=== PATIENT | female | born 1995 | race American Indian/Alaskan Native ===

== ENCOUNTER 2016-12-15 09:25 | Emergency (ER) | payer SELFPAY ==
[2016-12-15 09:44] VITALS: BP 116/66
[2016-12-15 10:20] LABS: Basophils % (Auto) 0.7 % (0.0-1.8); Eosinophils % (Auto) 5.8 % (0.0-4.3); Hematocrit 41.1 % (30.3-42.9); Hemoglobin 13.7 gm/dl (10.1-14.3); Mean Corpuscular HGB Conc 33 % (30-34); Mean Corpuscular Hemoglobin 29 pg (28-32); Mean Corpuscular Volume 86 fl (79-97); Platelet Count 234 K/mm3 (140-440); Red Blood Count 4.77 M/mm3 (3.65-5.03); Red Cell Distribution Width 13.7 % (13.2-15.2); White Blood Count 10.3 K/mm3 (4.5-11.0)
[2016-12-15 10:37] LABS: Bilirubin,Urine NEG (Negative); Blood,Urine NEG (Negative); Ketones,Urine NEG (Negative); Leukocyte Esterase,Urine SM (Negative); Mucus,Urine FEW /HPF; Nitrite,Urine NEG (Negative); Protein,Urine <15 mg/dL mg/dL (Negative); Urobilinogen,Urine < 2.0 mg/dL (<2.0)
--- NOTE | 2016-12-15 14:41 | Emergency Department Report ---
HPI - General Chief Complaint: Vaginal Bleeding Time Seen by Provider: 12/15/16 13:33 - HPI HPI: This is a 21-year-old -[place] female presents the emergency department with a complaint of a one-month history of heavy vaginal bleeding and pelvic discomfort. About one month ago the patient was seen at [facility] and diagnosed with an ovarian cyst. She was discharged home at that time with some narcotic pain medication and ibuprofen. She took that medication but ran out and has not taken anything recently. She says that there was some improvement shortly after discharge from [facility] but the symptoms increased in intensity about 2 weeks ago and is now associated with some nausea without vomiting. She denies any vaginal discharge, dysuria, fever. She denies any past medical history. She has a implanted control. She does not have an [employer] or primary care doctor. No recent travel or sick contacts at home. ED Past Medical Hx - Past Medical History Previous Medical History?: No - Surgical History Past Surgical History?: Yes Additional Surgical History: control hormone implant August 2014 - Social History Smoking Status: Never Smoker Substance Use Type: Marijuana - Medications Home Medications: Home Medications Medication Instructions Recorded Confirmed Last Taken Type traMADol [Ultram] 50 mg PO Q6HR PRN #12 tablet 12/15/16 Unknown Rx ED Review of Systems ROS: Stated complaint: POSS CYST ON OVARY/PAIN/VOMITING Other details as noted in HPI Comment: All other systems reviewed and negative Constitutional: denies: chills, fever Eyes: denies: eye pain, eye discharge, vision change ENT: denies: ear pain, throat pain Respiratory: denies: cough, shortness of breath, wheezing Cardiovascular: denies: chest pain, palpitations Gastrointestinal: abdominal pain (pelvic pain), nausea. denies: vomiting Genitourinary: other (vaginal bleeding). denies: dysuria Musculoskeletal: denies: back pain, joint swelling, arthralgia Skin: denies: rash, lesions Neurological: denies: headache, weakness, paresthesias Physical Exam - Physical Exam Vital Signs: Vital Signs 12/15/16 09:40 Temperature 98.6 F Pulse Rate 61 Respiratory 18 Rate Blood Pressure 116/66 O2 Sat by Pulse 100 Oximetry Physical Exam: GENERAL: The patient is well-developed well-nourished. HEENT: Normocephalic. Atraumatic. Extraocular motions are intact. Patient has moist mucous membranes. Pupils equal reactive to light bilaterally. NECK: Supple. Trach is midline. CHEST/LUNGS: Clear to auscultation. There is no respiratory distress noted. HEART/CARDIOVASCULAR: Regular. There is no tachycardia. There is no gallop rub or murmur. ABDOMEN: Abdomen is soft, nontender. Patient has normal bowel sounds. There is no abdominal distention. Unable to reproduce patient's pelvic pain to palpation. No peritoneal signs. SKIN: Skin is warm and dry. NEURO: The patient is awake, alert, and oriented. The patient is cooperative. The patient has no focal neurologic deficits. The patient has normal speech. MUSCULOSKELETAL: There is no tenderness or deformity. There is no limitation range of motion. There is no evidence of acute injury. : Deferred ED Course Vital Signs 12/15/16 09:40 Temperature 98.6 F Pulse Rate 61 Respiratory 18 Rate Blood Pressure 116/66 O2 Sat by Pulse 100 Oximetry ED Medical Decision Making - Lab Data Result diagrams: 12/15/16 09:55 - Radiology Data Radiology results: report reviewed Transvaginal/pelvic ultrasound shows a left ovarian cyst. - Medical Decision Making 21-year-old female presents with a 2 to three-week history of pelvic discomfort and heavy vaginal bleeding. She had the same problem about a month ago when she was seen at [facility]. Today her hemoglobin is stable at 13. Ultrasound shows a left ovarian cyst. Patient is not . There is no significant urinary tract infection. Vital signs stable throughout her ED course. The patient will be discharged home to follow-up with an [employer] physician. She'll return to the ER with any worsening of her symptoms or any acute distress. - Differential Diagnosis dysfunctional uterine bleeding, , fibroids, menorrhagia Critical Care Time: No Critical care attestation.: If time is entered above; I have spent that time in minutes in the direct care of this critically ill patient, excluding procedure time. ED Disposition Clinical Impression: Dysfunctional uterine bleeding Menorrhagia Qualifiers: Menorrahagia type: with irregular cycle Qualified Code(s): N92.1 - Excessive and frequent menstruation with irregular cycle Disposition: DISCHARGED TO HOME OR SELFCARE Is pt being admited?: No Condition: Stable Instructions: Menorrhagia (ED), Dysfunctional Uterine Bleeding (ED) Additional Instructions: Please follow-up with an [employer] in the next few days. Return to the emergency department with any worsening of your symptoms or any acute distress. You've been prescribed a medication that is sedating. Therefore this medication cannot be mixed with alcohol, or taken prior to driving, working, or being responsible for children. Prescriptions: traMADol [Ultram] 50 mg PO Q6HR PRN #12 tablet PRN Reason: Pain Referrals: PRIMARY CAREMD [Primary Care Provider] - 3-5 Days ZAHRAA PIKE MD [Staff Physician] - 3-5 Days VETO RAYGOZA MD [Staff Physician] - 3-5 Days [facility] [Outside] - 3-5 Days Time of Disposition: 16:02
--- NOTE | 2016-12-15 15:56 | Ultrasound Report ---
Pelvic and transvaginal sonography: History: Pelvic pain and bleeding. Findings: Uterus measures 7.1 x 3.6 x 5 cm. Endometrial thickness 0.9 mm. Right ovary 2.9 x 2.2 x 2.3 cm. No mass. Left ovary 4.3 x 2.4 x 2.8 cm. Cyst in the left ovary measures 3.8 x 2.4 x 3 cm. Impression: Cyst left ovary.
== END 2016-12-15 16:32 | disposition home or self-care (01) ==
LOC: ED 09:25
DX: N93.8 Other specified abnormal uterine and vaginal bleeding (principal); N92.1 Excessive and frequent menstruation with irregular cycle
CPT/HCPCS: 36415; 76830; 81001; 81025; 85025; 86850; 86900; 86901; 93975

== ENCOUNTER 2017-04-09 16:03 | Emergency (ER) | payer SELFPAY ==
--- NOTE | 2017-04-09 17:25 | Emergency Department Report ---
Chief Complaint: Dizziness Stated Complaint: SOB/LIGHT HEADED Time Seen by Provider: 04/09/17 17:22 - HPI History of Present Illness: PT states she fainted yesterday while in a store. - ROS Review of Systems: + cough - fever + chest pain + sore throat - Exam Vital Signs: Vital Signs 04/09/17 16:11 Temperature 98.6 F Pulse Rate 88 Respiratory 18 Rate Blood Pressure 135/71 O2 Sat by Pulse 100 Oximetry Physical Exam: + chest wall tenderness lungs cta at this time, however pt coughing MSE screening note: Focused history and physical exam performed. Due to findings the following was ordered: ekg, labs, xr ED Disposition for MSE Condition: Stable Referrals: PRIMARY CARE, [Primary Care Provider] - 3-5 Days
[2017-04-09 18:19] LABS: Alanine Aminotransferase 11 units/L (7-56); Albumin 3.9 g/dL (3.9-5); Albumin/Globulin Ratio 1.1 %; Alkaline Phosphatase 55 units/L (35-129); Anion Gap 18 mmol/L; BUN/Creatinine Ratio 12.22; Blood Urea Nitrogen 11 mg/dL (7-17); Calcium 8.9 mg/dL (8.4-10.2); Carbon Dioxide 23 mmol/L (22-30); Chloride 100.6 mmol/L (98-107); Creatine Kinase 155 units/L (30-135); Glucose 74 mg/dL (65-100); Potassium 4.4 mmol/L (3.6-5.0); Sodium 137 mmol/L (137-145); Total Protein 7.3 g/dL (6.3-8.2)
[2017-04-09 18:21] LABS: Basophils % (Auto) 0.9 % (0.0-1.8); Eosinophils % (Auto) 4.8 % (0.0-4.3); Hematocrit 42.2 % (30.3-42.9); Hemoglobin 13.4 gm/dl (10.1-14.3); Mean Corpuscular HGB Conc 32 % (30-34); Mean Corpuscular Hemoglobin 28 pg (28-32); Mean Corpuscular Volume 87 fl (79-97); Platelet Count 270 K/mm3 (140-440); Red Blood Count 4.84 M/mm3 (3.65-5.03); Red Cell Distribution Width 14.2 % (13.2-15.2)
[2017-04-09] MEDS ORDERED: NACL 0.9% 1000 ML 1,000 ML IV ONE (23:21)
--- NOTE | 2017-04-09 23:23 | Emergency Department Report ---
HPI - General Chief Complaint: Dizziness Time Seen by Provider: 04/09/17 17:22 - HPI HPI: Patient brought to the ED with dizziness. Patient states yesterday she had a syncopal episode from standing outside. He has not been feeling well since. Complaining of feeling weak, dizzy, feeling unwell. Patient denies any chest pain, shortness of breath, nausea, vomiting. Patient denies having similar symptoms in the past. She denies any alleviating or exacerbating factors. ED Past Medical Hx - Surgical History Past Surgical History?: Yes Additional Surgical History: control hormone implant August 2014 - Social History Smoking Status: Current Every Day Smoker Substance Use Type: None - Medications Home Medications: Home Medications Medication Instructions Recorded Confirmed Last Taken Type traMADol [Ultram] 50 mg PO Q6HR PRN #12 tablet 12/15/16 Unknown Rx Meclizine [Antivert] 25 mg PO TID PRN #30 tablet 04/10/17 Unknown Rx ED Review of Systems ROS: Stated complaint: SOB/LIGHT HEADED Other details as noted in HPI Comment: All other systems reviewed and negative Gastrointestinal: as per HPI Neurological: weakness Physical Exam - Physical Exam Vital Signs: Vital Signs 04/09/17 16:11 Temperature 98.6 F Pulse Rate 88 Respiratory 18 Rate Blood Pressure 135/71 O2 Sat by Pulse 100 Oximetry Physical Exam: Gen. alert and oriented 3 in no distress Head atraumatic normocephalic Eyes PERR LA EOMI Chest regular rate and rhythm normal S1-S2 lungs clear bilaterally Abdomen soft nondistended Back no point tenderness paravertebral tenderness Neuro no focal deficit. Psych normal mood. ED Course Vital Signs 04/09/17 16:11 Temperature 98.6 F Pulse Rate 88 Respiratory 18 Rate Blood Pressure 135/71 O2 Sat by Pulse 100 Oximetry ED Medical Decision Making - Lab Data Result diagrams: 04/09/17 17:44 04/09/17 17:44 Critical care attestation.: If time is entered above; I have spent that time in minutes in the direct care of this critically ill patient, excluding procedure time. ED Disposition Clinical Impression: Dizziness Disposition: DC-01 TO HOME OR SELFCARE Is pt being admited?: No Does the pt Need Aspirin: No Condition: Stable Instructions: Dizziness (ED) Prescriptions: Meclizine [Antivert] 25 mg PO TID PRN #30 tablet PRN Reason: Vertigo Referrals: PRIMARY CARE,MD [Primary Care Provider] - 3-5 Days
[2017-04-10] MEDS ORDERED: NACL ONE (01:00)
--- NOTE | 2017-04-10 01:21 | Cat Scan Report ---
FINAL REPORT EXAM: CT HEAD/BRAIN WO CON HISTORY: dizziness, syncope COMPARISON: None available. TECHNIQUE: Axial images obtained skull base through vertex. FINDINGS: No acute intracranial hemorrhage, midline shift or pathologic extra axial fluid collection. Ventricles and cisterns are normal in size and configuration for the patient's age. Last-white differentiation preserved. Calvarium grossly intact. Orbits are grossly unremarkable. Prominence of the nasopharyngeal adenoids likely reactive given the patient's age. Mild mucosal thickening ethmoid air cells. Mastoid air cells are clear. IMPRESSION: No grossly acute intracranial abnormality.
--- NOTE | 2017-04-10 01:42 | Cat Scan Report ---
FINAL REPORT EXAM: CT ANGIO CHEST HISTORY: sob, dizziness COMPARISON: None available. TECHNIQUE: Contiguous axial images were obtained. Additional sagittal and coronal reformatted images were obtained. Max intensity projection images. Administration of IV contrast given per institution protocol. Images submitted for interpretation. 100 cc Omnipaque 350. FINDINGS: Heart normal in size. Thoracic aorta normal in caliber. No dissection. No pulmonary embolus. No pathologically enlarged intrathoracic or axillary lymph nodes. Mild bronchial wall thickening concerning for bronchitis. Mild subsegmental atelectasis at the medial margin right lower lobe. No dense airspace consolidation or pleural effusion. Small bleb at the superior posterior aspect of the right lower lobe. Visualized upper abdomen is grossly unremarkable. Bony thorax is grossly intact. IMPRESSION: No pulmonary embolus. Mild bronchial wall thickening concerning for bronchitis. No dense consolidation or effusion.
[2017-04-10 02:42] VITALS: BP 114/66
--- NOTE | 2017-04-10 08:16 | XRay Report ---
CHEST 2 VIEWS INDICATION: Chest pain, productive cough for 2 days. Smoker. COMPARISON: None similar. FINDINGS: PA and lateral chest radiographs demonstrate normal cardiomediastinal silhouette. Slightly prominent lung markings centrally. No pleural effusions or CHF. Slight lower thoracic dextroscoliosis. CONCLUSION: No significant acute chest process, as described. Thank you for the opportunity to participate in this patient's care.
== END 2017-04-10 03:26 | disposition home or self-care (01) ==
LOC: ED 16:03
DX: R42 Dizziness and giddiness (principal); F17.200 Nicotine dependence, unspecified, uncomplicated
CPT/HCPCS: 36415; 70450; 71020; 71275; 80053; 82550; 84703; 85025; 93005; 93010; 96360; 99284; J7030; Q9967

== ENCOUNTER 2019-07-07 16:37 | Emergency (ER) | payer SELFPAY | END 2019-07-07 17:16 | disposition left against medical advice (07) | LOC: ED 16:37 | DX: R55 Syncope and collapse (principal); Z53.21 Procedure and treatment not carried out due to patient leaving prior to being seen by health care provider ==

== ENCOUNTER 2020-03-06 11:10 | Emergency (ER) | payer SELFPAY ==
[2020-03-06 12:01] LABS: Basophils # (Auto) 0.1 K/mm3 (0.0-0.1); Basophils % (Auto) 0.5 % (0.0-1.8); Eosinophils # (Auto) 0.3 K/mm3 (0.0-0.4); Eosinophils % (Auto) 2.5 % (0.0-4.3); Hematocrit 42.9 % (30.3-42.9); Hemoglobin 14.1 gm/dl (10.1-14.3); Lymphocytes # (Auto) 1.8 K/mm3 (1.2-5.4); Lymphocytes % (Auto) 15.8 % (13.4-35.0); Mean Corpuscular HGB Conc 33 % (30-34); Mean Corpuscular Volume 87 fl (79-97); Monocytes # (Auto) 0.6 K/mm3 (0.0-0.8); Monocytes % (Auto) 5.1 % (0.0-7.3); Platelet Count 277 K/mm3 (140-440); Red Blood Count 4.94 M/mm3 (3.65-5.03); Red Cell Distribution Width 15.8 % (13.2-15.2)
[2020-03-06 12:17] LABS: Alanine Aminotransferase 22 units/L (7-56); Albumin 4.5 g/dL (3.9-5); BUN/Creatinine Ratio 14; Blood Urea Nitrogen 13 mg/dL (7-17); Hemolysis Index 4
--- NOTE | 2020-03-06 14:56 | Emergency Department Report ---
ED Abdominal Pain HPI - General Chief Complaint: Abdominal Pain Stated Complaint: N/V/ABD PAIN Time Seen by Provider: 03/06/20 12:25 Source: patient Mode of arrival: Wheelchair Limitations: No Limitations - History of Present Illness MD Complaint: abdominal pain, flank pain -: Gradual, Sudden, days(s) Location: diffuse Radiation: none Migration to: no migration Severity: moderate Quality: cramping, aching Consistency: constant Improves With: nothing Worsens With: eating Associated Symptoms: nausea, vomiting, diarrhea, chills. denies: melena, hematuria, anorexia, syncope - Related Data Previous Rx's Medication Instructions Recorded Last Taken Type traMADoL [Ultram] 50 mg PO Q6HR PRN #12 tablet 12/15/16 Unknown Rx Meclizine [Antivert] 25 mg PO TID PRN #30 tablet 04/10/17 Unknown Rx Ciprofloxacin HCl [Ciprofloxacin 500 mg PO Q12HR #28 tab 03/06/20 Unknown Rx TAB] Hyoscyamine Subl [Levsin Sl 0.125 0.125 mg SL Q6HR PRN #20 tab 03/06/20 Unknown Rx TAB] Ondansetron [Zofran ODT TAB] 8 mg PO Q12HR #14 tab.rapdis 03/06/20 Unknown Rx metroNIDAZOLE [Flagyl] 500 mg PO Q12HR #28 tab 03/06/20 Unknown Rx Allergies Allergy/AdvReac Type Severity Reaction Status Date / Time No Known Allergies Allergy Verified 04/09/17 16:11 ED Review of Systems ROS: Stated complaint: N/V/ABD PAIN Other details as noted in HPI Comment: All other systems reviewed and negative ED Past Medical Hx - Past Medical History Previous Medical History?: No - Surgical History Past Surgical History?: No Additional Surgical History: control hormone implant August 2014 - Social History Smoking Status: Never Smoker Substance Use Type: None - Medications Home Medications: Home Medications Medication Instructions Recorded Confirmed Last Taken Type traMADoL [Ultram] 50 mg PO Q6HR PRN #12 tablet 12/15/16 Unknown Rx Meclizine [Antivert] 25 mg PO TID PRN #30 tablet 04/10/17 Unknown Rx Ciprofloxacin HCl [Ciprofloxacin 500 mg PO Q12HR #28 tab 03/06/20 Unknown Rx TAB] Hyoscyamine Subl [Levsin Sl 0.125 0.125 mg SL Q6HR PRN #20 tab 03/06/20 Unknown Rx TAB] Ondansetron [Zofran ODT TAB] 8 mg PO Q12HR #14 tab.rapdis 03/06/20 Unknown Rx metroNIDAZOLE [Flagyl] 500 mg PO Q12HR #28 tab 03/06/20 Unknown Rx ED Physical Exam - General Limitations: No Limitations General appearance: alert, in no apparent distress - Head Head exam: Present: atraumatic, normocephalic - Eye Eye exam: Present: normal appearance, PERRL, EOMI Pupils: Present: normal accommodation - ENT ENT exam: Present: normal exam, mucous membranes moist, TM's normal bilaterally - Neck Neck exam: Present: normal inspection, full ROM - Respiratory Respiratory exam: Present: normal lung sounds bilaterally. Absent: respiratory distress - Cardiovascular Cardiovascular Exam: Present: regular rate, normal rhythm. Absent: systolic murmur, diastolic murmur, rubs, gallop - GI/Abdominal GI/Abdominal exam: Present: soft, tenderness, normal bowel sounds. Absent: organomegaly, mass, bruit - Extremities Exam Extremities exam: Present: normal inspection - Back Exam Back exam: Present: normal inspection - Neurological Exam Neurological exam: Present: alert, oriented X3 - Psychiatric Psychiatric exam: Present: normal affect, normal mood - Skin Skin exam: Present: warm, dry, intact, normal color. Absent: rash ED Course Vital Signs 03/06/20 11:17 Temperature 97.9 F Pulse Rate 65 Respiratory 20 Rate Blood Pressure 139/76 [Right] O2 Sat by Pulse 97 Oximetry ED Medical Decision Making - Lab Data Result diagrams: 03/06/20 11:24 03/06/20 11:24 - Radiology Data Radiology results: report reviewed Patient Name: JOY SIMONS Gender: Female Date of : 1995 Referring Provider: NELL LIU Organization: [facility] Accession Number: [id number] Requested Date: March 06, 2020 17:26 Report Status: Final Requested Procedure: 1 Procedure Description: CT abdomen pelvis w con Moda lity: CT Findings Reporting MD: Екатерина Dao Dictation Time: March 06, 2020 17:34 Centrifugal Screen Tender: Not available Geotechnicial Properties Technician Date: CT abdomen pelvis w con INDICATION / CLINICAL INFORMATION: Lower abdominal pain, nausea and vomiting. TECHNIQUE: Axial CT imaging of abdomen and pelvis was obtained with IV contrast. Coronal and sagittal reformatted imaging obtained and reviewed. All CT scans at this location are performed using CT dose reduction for ALARA by means of automated exposure control. COMPARISON: Prior CT, 05/31/2015 FINDINGS: CT abdomen with contrast demonstrates grossly normal appearance of the liver, spleen, pancreas, kidneys, and adrenal glands. Gallbladder is present and without obvious abnormality. CT pelvis demonstrates a small amount of free fluid scattered throughout the pelvis. No adnexal mass noted. A normal appendix is present. There is some mild inflammatory change noted throughout the descending and transverse colon suspicious for mild colitis. The remainder of the GI tract is unremarkable. Visualized lung bases are clear. No acute pulmonary or pleural disease noted in either lung base. No significant osseous abnormality identified. IMPRESSION: 1. Mild colitis involving the transverse and descending colon. 2. Small amount of free fluid in the pelvis which may be physiologic. Signer Name: Екатерина Dao MD Signed: 03/06/2020 5:34 PM Workstation Name: [id number] - Medical Decision Making This patient presents with abdominal pain and nausea which appears to be secondary to a colitis. A CT scan was performed to evaluate for potential causes of the abdominal pain, however, neither the clinical exam nor the CT has identified an emergent etiology for the abdominal pain CT scan did show colitis. Specifically, given the benign exam, the laboratory studies, and unremarkable CT, I have a very low suspicion for appendicitis, ischemic bowel, bowel perforation, or any other life threatening disease. I have discussed with the patient the level of uncertainty with undifferentiated abdominal pain and clearly explained the need to follow-up as noted on the discharge instructions, or return to the Emergency Department immediately if the pain worsens, develops fever, persistent and uncontrollable vomiting, or for any new symptoms or concerns. Critical care attestation.: If time is entered above; I have spent that time in minutes in the direct care of this critically ill patient, excluding procedure time. ED Disposition Clinical Impression: Colitis Disposition: DC-01 TO HOME OR SELFCARE Is pt being admited?: No Does the pt Need Aspirin: No Condition: Stable Instructions: Abdominal Pain (ED), Infectious Colitis (ED) Prescriptions: Ciprofloxacin HCl [Ciprofloxacin TAB] 500 mg PO Q12HR #28 tab metroNIDAZOLE [Flagyl] 500 mg PO Q12HR #28 tab Hyoscyamine Subl [Levsin Sl 0.125 TAB] 0.125 mg SL Q6HR PRN #20 tab PRN Reason: abdominal cramps and spasms Ondansetron [Zofran ODT TAB] 8 mg PO Q12HR #14 tab.petar Referrals: PRIMARY CARE, [Primary Care Provider] - 3-5 Days [facility] [Provider Group] - 3-5 Days
[2020-03-06] MEDS ORDERED: ONDANSETRON 4 MG ODT TAB PO STA (14:59)
[2020-03-06] MEDS ORDERED: diphenhydrAMINE 50 MG/ML VIAL IV STA (17:26)
[2020-03-06] MEDS ORDERED: METOCLOPRAMIDE 10 MG/2 ML INJ IV STA (17:26)
[2020-03-06] MEDS ORDERED: SODIUM CHLORIDE 0.9% 1000 ML 1,000 ML IV ONE (17:26)
--- NOTE | 2020-03-06 18:38 | Cat Scan Report ---
CT abdomen pelvis w con INDICATION / CLINICAL INFORMATION: Lower abdominal pain, nausea and vomiting. TECHNIQUE: Axial CT imaging of abdomen and pelvis was obtained with IV contrast. Coronal and sagittal reformatte d imaging obtained and reviewed. All CT scans at this location are performed using CT dose reduction for ALARA by means of automated exposure control. COMPARISON: Prior CT, 05/31/2015 FINDINGS: CT abdomen with contrast demonstrates grossly normal appearance of the liver, spleen, pancreas, kidne ys, and adrenal glands. Gallbladder is present and without obvious abnormality. CT pelvis demonstrates a small amount of free fluid scattered throughout the pelvis. No adnexal mass noted. A normal appendix is present. There is some mild inflammatory change noted throughout the desc ending and transverse colon suspicious for mild colitis. The remainder of the GI tract is unremarkabl e. Visualized lung bases are clear. No acute pulmonary or pleural disease noted in either lung base. No significant osseous abnormality identified. IMPRESSION: 1. Mild colitis involving the transverse and descending colon. 2. Small amount of free fluid in the pelvis which may be physiologic. Signer Name: Екатерина Dao MD Signed: 03/06/2020 6:34 PM Workstation Name: [id number]
[2020-03-06 20:04] VITALS: BP 126/87
== END 2020-03-06 19:40 | disposition home or self-care (01) ==
LOC: ED 11:10
DX: K52.9 Noninfective gastroenteritis and colitis, unspecified (principal)
CPT/HCPCS: 36415; 74177; 80053; 83690; 84703; 85025; 96361; 96374; 96375; 99284; J1200; J2765; J7030; Q9967; Q0162

== ENCOUNTER 2020-05-05 13:52 | Emergency (ER) | payer SELFPAY ==
[2020-05-05 13:58] VITALS: BP 131/60
[2020-05-05 14:42] LABS: Basophils # (Auto) 0.1 K/mm3 (0.0-0.1); Basophils % (Auto) 0.7 % (0.0-1.8); Eosinophils # (Auto) 0.1 K/mm3 (0.0-0.4); Eosinophils % (Auto) 1.2 % (0.0-4.3); Hematocrit 41.4 % (30.3-42.9); Hemoglobin 13.8 gm/dl (10.1-14.3); Lymphocytes # (Auto) 1.9 K/mm3 (1.2-5.4); Lymphocytes % (Auto) 23.3 % (13.4-35.0); Mean Corpuscular HGB Conc 33 % (30-34); Mean Corpuscular Volume 88 fl (79-97); Monocytes # (Auto) 0.6 K/mm3 (0.0-0.8); Monocytes % (Auto) 7.3 % (0.0-7.3); Platelet Count 251 K/mm3 (140-440); Red Cell Distribution Width 16.6 % (13.2-15.2)
[2020-05-05 15:03] LABS: Alanine Aminotransferase 15 units/L (7-56); Albumin 4.6 g/dL (3.9-5); BUN/Creatinine Ratio 14; Blood Urea Nitrogen 11 mg/dL (7-17); Calcium 9.5 mg/dL (8.4-10.2); Hemolysis Index 5
[2020-05-05 16:56] LABS: HCG Qualitative,Urine Positive (Negative)
[2020-05-05 16:57] LABS: Bilirubin,Urine NEG (Negative); Blood,Urine NEG (Negative); Color,Urine Straw (Yellow); Mucus,Urine FEW /HPF; Protein,Urine <15 mg/dL mg/dL (Negative); Urobilinogen,Urine < 2.0 mg/dL (<2.0)
[2020-05-05 16:59] LABS: WBC,Urine < 1.0 /HPF (0.0-6.0)
--- NOTE | 2020-05-05 18:11 | Emergency Department Report ---
<ANGY BRANCH - Last Filed: 05/05/20 18:28> ED Abdominal Pain HPI - General Chief Complaint: Abdominal Pain Stated Complaint: STOMACH PAINS Time Seen by Provider: 05/05/20 18:05 Source: patient Mode of arrival: Ambulatory Limitations: No Limitations - History of Present Illness Initial Comments: 24-year-old -Micron[place] female presents to the emergency room for abdominal pain and vomiting times today. Patient states that she had an anxiety attack in after she went through that she has a light headache had vomited and was not typical for her so she came in to be evaluated. Patient last menstrual period was April 01, 2020. Patient is 0. Patient denies any vaginal bleeding vaginal discharge or dysuria. MD Complaint: abdominal pain -: This morning Location: diffuse Radiation: none Severity scale (0 -10): 4 Quality: aching Consistency: intermittent Improves With: nothing Worsens With: nothing Associated Symptoms: nausea, vomiting (X1 today) - Related Data LMP Date: 04/01/20 Previous Rx's Medication Instructions Recorded Last Taken Type traMADoL [Ultram] 50 mg PO Q6HR PRN #12 tablet 12/15/16 Unknown Rx Meclizine [Antivert] 25 mg PO TID PRN #30 tablet 04/10/17 Unknown Rx Ciprofloxacin HCl [Ciprofloxacin 500 mg PO Q12HR #28 tab 03/06/20 Unknown Rx TAB] Hyoscyamine Subl [Levsin Sl 0.125 0.125 mg SL Q6HR PRN #20 tab 03/06/20 Unknown Rx TAB] Ondansetron [Zofran ODT TAB] 8 mg PO Q12HR #14 tab.rapdis 03/06/20 Unknown Rx metroNIDAZOLE [Flagyl] 500 mg PO Q12HR #28 tab 03/06/20 Unknown Rx Allergies Allergy/AdvReac Type Severity Reaction Status Date / Time No Known Allergies Allergy Verified 04/09/17 16:11 ED Review of Systems Comment: All other systems reviewed and negative ED Past Medical Hx - Past Medical History Previous Medical History?: No - Surgical History Past Surgical History?: No Additional Surgical History: control hormone implant August 2014 - Social History Smoking Status: Never Smoker Substance Use Type: Marijuana - Medications Home Medications: Home Medications Medication Instructions Recorded Confirmed Last Taken Type traMADoL [Ultram] 50 mg PO Q6HR PRN #12 tablet 12/15/16 Unknown Rx Meclizine [Antivert] 25 mg PO TID PRN #30 tablet 04/10/17 Unknown Rx Ciprofloxacin HCl [Ciprofloxacin 500 mg PO Q12HR #28 tab 03/06/20 Unknown Rx TAB] Hyoscyamine Subl [Levsin Sl 0.125 0.125 mg SL Q6HR PRN #20 tab 03/06/20 Unknown Rx TAB] Ondansetron [Zofran ODT TAB] 8 mg PO Q12HR #14 tab.rapdis 03/06/20 Unknown Rx metroNIDAZOLE [Flagyl] 500 mg PO Q12HR #28 tab 03/06/20 Unknown Rx ED Physical Exam - General Limitations: No Limitations General appearance: alert, in no apparent distress - Head Head exam: Present: atraumatic, normocephalic - Eye Eye exam: Present: normal appearance - ENT ENT exam: Present: mucous membranes moist - Respiratory Respiratory exam: Present: normal lung sounds bilaterally - Cardiovascular Cardiovascular Exam: Present: regular rate, normal rhythm. Absent: systolic murmur, diastolic murmur, rubs, gallop - GI/Abdominal GI/Abdominal exam: Present: soft. Absent: distended, tenderness - Extremities Exam Extremities exam: Present: normal inspection - Back Exam Back exam: Present: normal inspection - Neurological Exam Neurological exam: Present: alert, oriented X3 - Psychiatric Psychiatric exam: Present: normal affect, normal mood - Skin Skin exam: Present: warm, dry, intact, normal color. Absent: rash ED Medical Decision Making - Lab Data Result diagrams: 05/05/20 14:22 05/05/20 14:18 - Medical Decision Making 24-year-old -Micron[place] female presents to the emergency room for abdominal pain and vomiting times today. Patient states that she had an anxiety attack in after she went through that she has a light headache had vomited and was not typical for her so she came in to be evaluated. Patient last menstrual period was April 01, 2020. Patient is 0. Patient denies any vaginal bleeding vaginal discharge or dysuria. hCG positive for ordered an hCG quant quantitative ultrasound less than 14 weeks with gestation has been ordered and transvaginal. Patient declined any antinausea medication at this time. ED Disposition Clinical Impression: 5 weeks gestation of Disposition: DC-01 TO HOME OR SELFCARE Is pt being admited?: No Does the pt Need Aspirin: No Condition: Stable Instructions: (ED) Referrals: YUSUF AGEE MD [Staff Physician] - 3-5 Days <SAMIA HANDY - Last Filed: 05/05/20 20:52> ED Review of Systems ROS: Stated complaint: STOMACH PAINS Other details as noted in HPI ED Course Vital Signs 05/05/20 13:56 Temperature 97.8 F Pulse Rate 79 Respiratory 16 Rate Blood Pressure 131/60 O2 Sat by Pulse 100 Oximetry ED Medical Decision Making - Lab Data Result diagrams: 05/05/20 14:22 05/05/20 14:18 - Radiology Data Radiology results: report reviewed ULTRASOUND OBSTETRIC INDICATION / CLINICAL INFORMATION: Abdominal pain positive test. TECHNIQUE: Transabdominal. COMPARISON: None available. FINDINGS: GESTATIONAL SAC: There is a gestational sac measuring 6.4 mm, which corresponds to sonographic age of 5 weeks, 3 days. EMBRYO/FETUS: Nonvisualized ADNEXA: No significant abnormality. FREE FLUID: None. ADDITIONAL FINDINGS: None. IMPRESSION: Gestational sac in the uterus with gestational sac size corresponding to 5 weeks, 3 days. No pole visualized at this time. - Medical Decision Making Patient handed over to me by Alessandra Branch PA-C. Ultrasound shows IUP at 5 weeks 3 days without pole at this time. No significant abnormalities noted on CBC or chemistry. UA is negative for UTI. Patient's vitals are no rmal, she is well-appearing, and she is stable for discharge home. Patient to follow-up with PATIENT MANAGER for further care. Strict return precautions were discussed in detail with patient who verbalizes understanding. Critical care attestation.: If time is entered above; I have spent that time in minutes in the direct care of this critically ill patient, excluding procedure time. ED Disposition Is pt being admited?: No
--- NOTE | 2020-05-05 20:43 | Ultrasound Report ---
ULTRASOUND OBSTETRIC INDICATION / CLINICAL INFORMATION: Abdominal pain positive test. TECHNIQUE: Transabdominal. COMPARISON: None available. FINDINGS: GESTATIONAL SAC: There is a gestational sac measuring 6.4 mm, which corresponds to sonographic age of 5 weeks, 3 days. EMBRYO/FETUS: Nonvisualized ADNEXA: No significant abnormality. FREE FLUID: None. ADDITIONAL FINDINGS: None. IMPRESSION: Gestational sac in the uterus with gestational sac size corresponding to 5 weeks, 3 days. No po le visualized at this time. Signer Name: Adama Montero MD Signed: 05/05/2020 8:39 PM Workstation Name: [id number]
== END 2020-05-05 21:00 | disposition home or self-care (01) ==
LOC: ED 13:52
DX: O21.8 Other vomiting complicating pregnancy (principal); O26.891 Other specified pregnancy related conditions, first trimester; R10.84 Generalized abdominal pain; F12.10 Cannabis abuse, uncomplicated; Z79.899 Other long term (current) drug therapy; Z3A.01 Less than 8 weeks gestation of pregnancy
CPT/HCPCS: 36415; 76801; 80053; 81001; 81025; 84702; 85025

== ENCOUNTER 2020-07-08 11:20 | Emergency (ER) | payer OTHER ==
[2020-07-08 11:48] VITALS: BP 116/51
--- NOTE | 2020-07-08 13:13 | Emergency Department Report ---
ED General Adult HPI - General Chief complaint: Dental/Oral Stated complaint: MOUTH/EAR PAIN Time Seen by Provider: 07/08/20 13:05 Source: patient Mode of arrival: Ambulatory Limitations: No Limitations - History of Present Illness Initial comments: 24-year-old -[place] female patient presents with complaints of left lower dental pain x3 days. She denies any facial swelling, fever/chills/sweats, or difficulty opening/closing her jaw. She rates her current pain as a 10/10 in severity and states it radiates to her left ear and throat. Patient states she has an appointment with a dental specialist scheduled for 07/13/2020. Severity scale (0 -10): 8 - Related Data Previous Rx's Medication Instructions Recorded Last Taken Type traMADoL [Ultram] 50 mg PO Q6HR PRN #12 tablet 12/15/16 Unknown Rx Meclizine [Antivert] 25 mg PO TID PRN #30 tablet 04/10/17 Unknown Rx Ciprofloxacin HCl [Ciprofloxacin 500 mg PO Q12HR #28 tab 03/06/20 Unknown Rx TAB] Hyoscyamine Subl [Levsin Sl 0.125 0.125 mg SL Q6HR PRN #20 tab 03/06/20 Unknown Rx TAB] Ondansetron [Zofran ODT TAB] 8 mg PO Q12HR #14 tab.rapdis 03/06/20 Unknown Rx metroNIDAZOLE [Flagyl] 500 mg PO Q12HR #28 tab 03/06/20 Unknown Rx Acetaminophen/Codeine [Tylenol 1 tab PO Q8H PRN #12 tab 07/08/20 Unknown Rx /Codeine # 3 tab] Penicillin V Potassium 500 mg PO QID 7 Days #28 tablet 07/08/20 Unknown Rx Allergies Allergy/AdvReac Type Severity Reaction Status Date / Time No Known Allergies Allergy Verified 04/09/17 16:11 ED Review of Systems ROS: Stated complaint: MOUTH/EAR PAIN Other details as noted in HPI Constitutional: denies: chills, diaphoresis, fever, malaise ENT: as per HPI Respiratory: denies: cough, shortness of breath Gastrointestinal: denies: nausea, vomiting Skin: denies: rash, lesions Hematological/Lymphatic: denies: swollen glands ED Past Medical Hx - Past Medical History Previous Medical History?: No - Surgical History Past Surgical History?: Yes Additional Surgical History: control hormone implant August 2014. oral surgery - Social History Smoking Status: Never Smoker Substance Use Type: Marijuana - Medications Home Medications: Home Medications Medication Instructions Recorded Confirmed Last Taken Type traMADoL [Ultram] 50 mg PO Q6HR PRN #12 tablet 12/15/16 Unknown Rx Meclizine [Antivert] 25 mg PO TID PRN #30 tablet 04/10/17 Unknown Rx Ciprofloxacin HCl [Ciprofloxacin 500 mg PO Q12HR #28 tab 03/06/20 Unknown Rx TAB] Hyoscyamine Subl [Levsin Sl 0.125 0.125 mg SL Q6HR PRN #20 tab 03/06/20 Unknown Rx TAB] Ondansetron [Zofran ODT TAB] 8 mg PO Q12HR #14 tab.rapdis 03/06/20 Unknown Rx metroNIDAZOLE [Flagyl] 500 mg PO Q12HR #28 tab 03/06/20 Unknown Rx Acetaminophen/Codeine [Tylenol 1 tab PO Q8H PRN #12 tab 07/08/20 Unknown Rx /Codeine # 3 tab] Penicillin V Potassium 500 mg PO QID 7 Days #28 tablet 07/08/20 Unknown Rx ED Physical Exam - General Limitations: No Limitations General appearance: alert - Head Head exam: Present: atraumatic, normocephalic - Eye Eye exam: Present: normal appearance. Absent: scleral icterus - ENT ENT exam: Present: TM's normal bilaterally, normal external ear exam - Expanded ENT Exam Expanded Mouth exam: Present: normal external inspection, tongue normal. Absent: drooling, trismus 1 - Dental Tenderness (With mild erythema and swelling of the gums noted; no obvious abscess or overlying facial swelling noted) - Neck Neck exam: Present: normal inspection, lymphadenopathy. Absent: full ROM ED Course Vital Signs 07/08/20 11:46 Temperature 98.2 F Pulse Rate 81 Respiratory 18 Rate Blood Pressure 116/51 [Right] O2 Sat by Pulse 96 Oximetry ED Medical Decision Making - Medical Decision Making 24-year-old -[place] female patient presents with complaints of left lower dental pain x3 days. She denies any facial swelling, fever/chills/sweats, or difficulty opening/closing her jaw. She rates her current pain as a 10/10 in severity and states it radiates to her left ear and throat. Patient states she has an appointment with a dental specialist scheduled for 07/13/2020. Mild swelling with significant tenderness to palpation of the tooth and gums noted on exam. Patient is currently 12 weeks . Prescription for penicillin given. Recommend follow-up sooner if possible with dental specialist within 2 to 3 days. Her vitals are normal, she is well-appearing, she is stable for discharge home. Strict return precautions were discussed in detail with patient who verbalizes understanding. Critical care attestation.: If time is entered above; I have spent that time in minutes in the direct care of this critically ill patient, excluding procedure time. ED Disposition Clinical Impression: Pain, dental Disposition: DC-01 TO HOME OR SELFCARE Is pt being admited?: No Condition: Stable Instructions: Dental Abscess Additional Instructions: Lease follow-up with your dental specialist as soon as possible, preferably within the next 2 to 3 days. Prescriptions: Penicillin V Potassium 500 mg PO QID 7 Days #28 tablet Acetaminophen/Codeine [Tylenol /Codeine # 3 tab] 1 tab PO Q8H PRN #12 tab PRN Reason: Pain , Severe (7-10)
== END 2020-07-08 14:15 | disposition home or self-care (01) ==
LOC: ED 11:20
DX: K08.89 Other specified disorders of teeth and supporting structures (principal); H92.02 Otalgia, left ear; R07.0 Pain in throat; F12.10 Cannabis abuse, uncomplicated; Z98.890 Other specified postprocedural states; Z79.2 Long term (current) use of antibiotics; Z79.899 Other long term (current) drug therapy
CPT/HCPCS: 99282

== ENCOUNTER 2020-08-03 22:12 | Emergency (ER) | payer OTHER ==
[2020-08-04 00:42] LABS: Basophils # (Auto) 0.1 K/mm3 (0.0-0.1); Basophils % (Auto) 0.6 % (0.0-1.8); Eosinophils # (Auto) 0.1 K/mm3 (0.0-0.4); Hematocrit 39.8 % (30.3-42.9); Hemoglobin 13.3 gm/dl (10.1-14.3); Lymphocytes # (Auto) 2.7 K/mm3 (1.2-5.4); Mean Corpuscular HGB Conc 33 % (30-34); Mean Corpuscular Volume 88 fl (79-97); Monocytes # (Auto) 0.9 K/mm3 (0.0-0.8); Monocytes % (Auto) 7.3 % (0.0-7.3); Platelet Count 243 K/mm3 (140-440); Red Blood Count 4.54 M/mm3 (3.65-5.03); Red Cell Distribution Width 14.4 % (13.2-15.2)
[2020-08-04 00:53] LABS: Alanine Aminotransferase 7 units/L (7-56); Albumin 4.1 g/dL (3.9-5); Blood Urea Nitrogen 10 mg/dL (7-17); Calcium 9.8 mg/dL (8.4-10.2); Hemolysis Index 3
[2020-08-04 01:10] LABS: BUN/Creatinine Ratio 17
[2020-08-04 01:55] VITALS: BP 128/52
[2020-08-04 02:16] LABS: Bilirubin,Urine NEG (Negative); Blood,Urine NEG (Negative); Color,Urine Yellow (Yellow); Mucus,Urine 1+ /HPF; Urobilinogen,Urine < 2.0 mg/dL (<2.0)
[2020-08-04] MEDS ORDERED: diphenhydrAMINE 50 MG/ML VIAL IV ONE (02:25)
[2020-08-04] MEDS ORDERED: METOCLOPRAMIDE 10 MG/2 ML INJ IV ONE (02:25)
[2020-08-04] MEDS ORDERED: SODIUM CHLORIDE 0.9% 1000 ML 1,000 ML IV ONE (02:25)
[2020-08-04] MEDS ORDERED: BUTALB/ACETAMINOPHEN/CAFFEINE TAB PO ONE (02:25)
--- NOTE | 2020-08-04 03:56 | Emergency Department Report ---
ED N/V/D HPI - General Chief complaint: Nausea/Vomiting/Diarrhea Stated complaint: VOMITING, AND HEADACHE Source: patient Mode of arrival: Ambulatory Limitations: No Limitations - History of Present Illness Initial comments: Patient is a A0 24-year-old -[place] female with a history of anxiety and who is approximately 18 weeks gestation who presents to the ED with complaint of acute onset persistent intractable nausea and vomiting and headache for the last 12 hours. Patient states that she has not been able to keep anything down including food and water because of persistent intractable nausea and vomiting and worsening headache. Patient denies fever, chills, diarrhea, abdominal pain, dysuria, urinary frequency and urgency, vaginal bleeding, vaginal discharge, chest pain or shortness of breath, change in vision, syncope, or sore throat. MD complaint: nausea, vomiting, other (headache) -: Sudden, hour(s) (12) Description of Vomiting: food contents, watery, bilious Associated Abdominal Pain: No Location: diffuse Radiation: none Pain Scale: 7 Quality: aching, dull Consistency: constant Improves with: none Worsens with: eating, vomiting Context: other ( related) Associated Symptoms: denies other symptoms, headaches, loss of appetite, malaise, nausea/vomiting. denies: myalgias, cough, diaphoresis, fever/chills, rash, dysuria, shortness of breath, syncope, weakness - Related Data Previous Rx's Medication Instructions Recorded Last Taken Type traMADoL [Ultram] 50 mg PO Q6HR PRN #12 tablet 12/15/16 Unknown Rx Meclizine [Antivert] 25 mg PO TID PRN #30 tablet 04/10/17 Unknown Rx Ciprofloxacin HCl [Ciprofloxacin 500 mg PO Q12HR #28 tab 03/06/20 Unknown Rx TAB] Hyoscyamine Subl [Levsin Sl 0.125 0.125 mg SL Q6HR PRN #20 tab 03/06/20 Unknown Rx TAB] Ondansetron [Zofran ODT TAB] 8 mg PO Q12HR #14 tab.rapdis 03/06/20 Unknown Rx metroNIDAZOLE [Flagyl] 500 mg PO Q12HR #28 tab 03/06/20 Unknown Rx Acetaminophen/Codeine [Tylenol 1 tab PO Q8H PRN #12 tab 07/08/20 Unknown Rx /Codeine # 3 tab] Penicillin V Potassium 500 mg PO QID 7 Days #28 tablet 07/08/20 Unknown Rx Acetaminophen [Tylenol] 500 mg PO Q6HR PRN #30 tablet 08/04/20 Unknown Rx Famotidine [Pepcid] 20 mg PO Q12H #40 tablet 08/04/20 Unknown Rx Metoclopramide [Reglan] 10 mg PO Q6H PRN #40 tab 08/04/20 Unknown Rx Allergies Allergy/AdvReac Type Severity Reaction Status Date / Time No Known Allergies Allergy Verified 04/09/17 16:11 ED Review of Systems ROS: Stated complaint: VOMITING, AND HEADACHE Other details as noted in HPI Constitutional: denies: chills, fever Eyes: denies: eye pain, eye discharge, vision change ENT: denies: ear pain, throat pain Respiratory: denies: cough, shortness of breath, wheezing Cardiovascular: denies: chest pain, palpitations Endocrine: no symptoms reported Gastrointestinal: nausea, vomiting. denies: abdominal pain, diarrhea Genitourinary: denies: urgency, dysuria, discharge Musculoskeletal: denies: back pain, joint swelling, arthralgia Skin: denies: rash, lesions Neurological: headache. denies: weakness, paresthesias Psychiatric: denies: anxiety, depression Hematological/Lymphatic: denies: easy bleeding, easy bruising ED Past Medical Hx - Past Medical History Previous Medical History?: Yes Hx Psychiatric Treatment: Yes (anxiety) - Surgical History Additional Surgical History: oral surgery - Social History Smoking Status: Never Smoker Substance Use Type: None - Medications Home Medications: Home Medications Medication Instructions Recorded Confirmed Last Taken Type traMADoL [Ultram] 50 mg PO Q6HR PRN #12 tablet 12/15/16 Unknown Rx Meclizine [Antivert] 25 mg PO TID PRN #30 tablet 04/10/17 Unknown Rx Ciprofloxacin HCl [Ciprofloxacin 500 mg PO Q12HR #28 tab 03/06/20 Unknown Rx TAB] Hyoscyamine Subl [Levsin Sl 0.125 0.125 mg SL Q6HR PRN #20 tab 03/06/20 Unknown Rx TAB] Ondansetron [Zofran ODT TAB] 8 mg PO Q12HR #14 tab.rapdis 03/06/20 Unknown Rx metroNIDAZOLE [Flagyl] 500 mg PO Q12HR #28 tab 03/06/20 Unknown Rx Acetaminophen/Codeine [Tylenol 1 tab PO Q8H PRN #12 tab 07/08/20 Unknown Rx /Codeine # 3 tab] Penicillin V Potassium 500 mg PO QID 7 Days #28 tablet 07/08/20 Unknown Rx Acetaminophen [Tylenol] 500 mg PO Q6HR PRN #30 tablet 08/04/20 Unknown Rx Famotidine [Pepcid] 20 mg PO Q12H #40 tablet 08/04/20 Unknown Rx Metoclopramide [Reglan] 10 mg PO Q6H PRN #40 tab 08/04/20 Unknown Rx ED Physical Exam - General Limitations: No Limitations General appearance: alert, in no apparent distress - Head Head exam: Present: atraumatic, normocephalic, normal inspection - Eye Eye exam: Present: normal appearance, PERRL, EOMI Pupils: Present: normal accommodation - ENT ENT exam: Present: normal exam, normal orophraynx, mucous membranes moist, TM's normal bilaterally, normal external ear exam - Neck Neck exam: Present: normal inspection, full ROM - Respiratory Respiratory exam: Present: normal lung sounds bilaterally. Absent: respiratory distress, wheezes, rhonchi, stridor, chest wall tenderness, accessory muscle use, decreased breath sounds, prolonged expiratory - Cardiovascular Cardiovascular Exam: Present: regular rate, normal rhythm, normal heart sounds. Absent: systolic murmur, diastolic murmur, rubs, gallop - GI/Abdominal GI/Abdominal exam: Present: soft, normal bowel sounds. Absent: tenderness, guarding, rebound, hypoactive bowel sounds, organomegaly - Extremities Exam Extremities exam: Present: normal inspection, full ROM, normal capillary refill - Back Exam Back exam: Present: normal inspection, full ROM. Absent: tenderness, CVA tenderness (R), CVA tenderness (L), muscle spasm, paraspinal tenderness, vertebral tenderness - Neurological Exam Neurological exam: Present: alert, oriented X3, CN II-XII intact, normal gait, reflexes normal - Psychiatric Psychiatric exam: Present: normal affect, normal mood - Skin Skin exam: Present: warm, dry, intact, normal color. Absent: rash ED Course Vital Signs 08/03/20 23:42 Temperature 97.9 F Pulse Rate 82 Respiratory 18 Rate Blood Pressure 128/52 O2 Sat by Pulse 99 Oximetry ED Medical Decision Making - Lab Data Result diagrams: 08/04/20 00:02 08/04/20 00:02 - Medical Decision Making This is a A0 24-year-old -[place] female with a history of anxiety and who is approximately 18 weeks gestation who presents to the ED with complaint of acute onset persistent intractable nausea and vomiting and headache for the last 12 hours. Patient states that she has not been able to keep anything down including food and water because of persistent intractable nausea and vomiting and worsening headache. In the ED, patient is alert and oriented x3 and is not in distress. Patient was treated in the ED for nausea and vomiting and also given normal saline 1 L IV bolus x1 as well as antiemetics. Lab test results showed acute leukocytosis of 11,900. Rest of the lab test r esults was unremarkable and nonactionable. On reevaluation, patient's nausea and vomiting resolved, the headache also resolved and patient felt better. Patient passed oral fluid challenge in the ED. 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 - Differential Diagnosis Migraine headache; Tension headache; Hyperemesis gravidarum; Dehydration Critical care attestation.: If time is entered above; I have spent that time in minutes in the direct care of this critically ill patient, excluding procedure time. ED Disposition Clinical Impression: Hyperemesis gravidarum Tension type headache Qualifiers: Headache chronicity pattern: acute headache Intractability: not intractable Qualified Code(s): G44.209 - Tension-type headache, unspecified, not intractable Disposition: DC-01 TO HOME OR SELFCARE Is pt being admited?: No Does the pt Need Aspirin: No Condition: Stable Instructions: Tension Headache, Adult, [id number], Morning Sickness, [id number], Hyperemesis Gravidarum Additional Instructions: Lab test results are nonactionable. Therefore maintain a clear liquid diet for 12 to 24 hours, drink plenty of fluids and follow-up with BUS DRIVER/MONITOR physician in 3 to 5 days for reevaluation. Return to the ED immediately if symptoms get worse. Prescriptions: Acetaminophen [Tylenol] 500 mg PO Q6HR PRN #30 tablet PRN Reason: Headache Famotidine [Pepcid] 20 mg PO Q12H #40 tablet Metoclopramide [Reglan] 10 mg PO Q6H PRN #40 tab PRN Reason: Nausea And Vomiting Referrals: DAKOTA VALERO MD [Staff Physician] - 3-5 Days Time of Disposition: 03:55 Print Language: BENGALI
== END 2020-08-04 04:46 | disposition home or self-care (01) ==
LOC: ED 22:12
DX: O21.0 Mild hyperemesis gravidarum (principal)
CPT/HCPCS: 36415; 80053; 81001; 85025; 96361; 96374; 96375; 99283; J1200; J2765; J7030

== ENCOUNTER 2020-12-16 13:07 | Outpatient (CLI) | payer OTHER ==
[2020-12-16 14:04] VITALS: BP 116/68
[2020-12-16] MEDS ORDERED: LACTATED RINGERS 1,000 ML IV ONE (15:25)
[2020-12-16] MEDS ORDERED: LACTATED RINGERS 1,000 ML IV SCH (16:00)
[2020-12-16 16:08] LABS: Bilirubin,Urine NEG (Negative); Color,Urine Yellow (Yellow)
[2020-12-16 16:09] LABS: Blood,Urine NEG (Negative); Mucus,Urine FEW /HPF; Protein,Urine <15 mg/dL mg/dL (Negative); Urobilinogen,Urine < 2.0 mg/dL (<2.0)
== END 2020-12-16 17:20 | disposition home or self-care (01) ==
LOC: TRG 13:07 → APU 13:07 → TRG 17:20
PROVIDERS: ATTEND Obstetrics & Gynecology
DX: O62.9 Abnormality of forces of labor, unspecified (principal); Z3A.37 37 weeks gestation of pregnancy
CPT/HCPCS: 59025; 81001; 96360; 96361; J7120; Q0177

== ENCOUNTER 2021-01-02 07:36 | Inpatient (IN) | payer OTHER ==
[2021-01-02] MEDS ORDERED: LACTATED RINGERS 1,000 ML IV ONE (09:04)
[2021-01-02] MEDS ORDERED: FAMOTIDINE 20 MG/2 ML INJ IV ONE (09:04)
--- NOTE | 2021-01-02 10:31 | Ultrasound Report ---
ULTRASOUND OBSTETRIC LIMITED ULTRASOUND BIOPHYSICAL PROFILE INDICATION / CLINICAL INFORMATION: BPP. Clinical Gestational Age (GA): 39.3 weeks.days COMPARISON: None available. FINDINGS: BREATHING MOVEMENT = 2 GROSS BODY MOVEMENT = 2 TONE = 2 QUALITATIVE AMNIOTIC FLUID VOLUME = 2 TOTAL BIOPHYSICAL SCORE = 8/8 HEART RATE (beats per minute): 133 AMNIOTIC FLUID INDEX: 14.6 cm PRESENTATION: Cephalic. ADDITIONAL FINDINGS: None. IMPRESSION: 1. Biophysical Score = 8/8 2. Additional findings as above. Signer Name: Jaron Aguirre MD Signed: 01/02/2021 10:26 AM Workstation Name: [id number]
[2021-01-02] MEDS ORDERED: MINERAL OIL 30 ML ORAL LIQD PO PRN (11:39)
[2021-01-02] MEDS ORDERED: TERBUTALINE 1 MG/1 ML INJ SUB-Q PRN (11:39)
[2021-01-02] MEDS ORDERED: ePHEDrine SULFATE 50 MG/1 ML INJ IV PRN (11:39)
[2021-01-02] MEDS ORDERED: LIDOCAINE (2%) 20 MG/1 ML VIAL 20 ML MDV INFILTRATI ONE (11:39)
--- NOTE | 2021-01-02 11:42 | History and Physical Report ---
History of Present Illness Date of examination: 01/02/21 Date of admission: 01/02/2021 Chief complaint: Contractions History of present illness: 25 year old presents to L&D with contractions. Patient received care at [facility] and records are available. LMP 04/01/2020. EDC 01/06/2021. significant for the following: anxiety. labs are as follows: A+, antibody screen negative, rubella immune, hepatitis B surface antigen negative, HIV negative, RPR nonreactive, HSV 2 negative, gonorrhea negative, chlamydia negative, trichomonas negative, carrier screen negative, NIPS low risk, hemoglobin electrophoresis AA, AFP negative, 1 hour sugar test 111, GBS negative. 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 denies: gonorrhea, hepatitis B, hepatitis C, herpes, HIV, syphilis Family/Genetic History: hypertension, cancer, other (renal failure) Social history: lives with family, smoking (not regular smoker), full code. denies: alcohol abuse, prescription drug abuse, IV drug use - Obstetrical History Expected Date of Delivery: 01/06/21 Actual Gestation: 39 Week(s) 3 Day(s) : 1 Para: 0 Hx # Term Pregnancies: 0 Number of Pregnancies: 0 Spontaneous Abortions: 0 Induced : 0 Number of Living Children: 0 Medications and Allergies Allergies Allergy/AdvReac Type Severity Reaction Status Date / Time No Known Allergies Allergy Verified 04/09/17 16:11 Home Medications Medication Instructions Recorded Confirmed Last Taken Type traMADoL [Ultram] 50 mg PO Q6HR PRN #12 tablet 12/15/16 12/16/20 Unknown Rx Meclizine [Antivert] 25 mg PO TID PRN #30 tablet 04/10/17 12/16/20 Unknown Rx Ciprofloxacin HCl [Ciprofloxacin 500 mg PO Q12HR #28 tab 03/06/20 12/16/20 Unknown Rx TAB] Hyoscyamine Subl [Levsin Sl 0.125 0.125 mg SL Q6HR PRN #20 tab 03/06/20 12/16/20 Unknown Rx TAB] Ondansetron [Zofran ODT TAB] 8 mg PO Q12HR #14 tab.rapdis 03/06/20 12/16/20 Unknown Rx metroNIDAZOLE [Flagyl] 500 mg PO Q12HR #28 tab 03/06/20 12/16/20 Unknown Rx Acetaminophen/Codeine [Tylenol 1 tab PO Q8H PRN #12 tab 07/08/20 12/16/20 Unknown Rx /Codeine # 3 tab] Penicillin V Potassium 500 mg PO QID 7 Days #28 tablet 07/08/20 12/16/20 Unknown Rx Acetaminophen [Tylenol] 500 mg PO Q6HR PRN #30 tablet 08/04/20 12/16/20 Unknown Rx Famotidine [Pepcid] 20 mg PO Q12H #40 tablet 08/04/20 12/16/20 Unknown Rx Metoclopramide [Reglan] 10 mg PO Q6H PRN #40 tab 08/04/20 12/16/20 Unknown Rx Review of Systems All systems: negative (contractions) - Vital Signs Vital signs: Vital Signs Temp Resp 98.1 F 18 01/02/21 08:22 01/02/21 08:22 Temp Pulse Resp BP Pulse Ox 98.1 F 78 18 123/86 100 01/02/21 08:22 01/02/21 11:22 01/02/21 08:22 01/02/21 08:29 01/02/21 11:22 - Physical Exam Abdomen: Positive: normal appearance, soft. Negative: distention, tenderness, guarding, rigidity Genitourinary (Female): Positive: normal external genitalia, normal perenium. Negative: perineal/vulvar lesions Vagina: Positive: normal moisture Uterus: Positive: enlarged. Negative: tender Anus/Rectum: Positive: normal perianal skin Extremities: Positive: normal. Negative: tenderness - Obstetrical FHR: category 1 Uterine Contraction Monitor Mode: External Cervical Dilatation: 2.5 Cervical Effacement Percentage: 80 station: -3 Uterine Contraction Pattern: Regular Uterine Contraction Intensity: Moderate Results All other labs normal. Assessment and Plan A: at 39 weeks, 3 days gestation. Labor. GBS negative. P: Admit. Continuous EFM. Anticipate vaginal .
[2021-01-02] MEDS ORDERED: LACTATED RINGERS 1,000 ML IV SCH (11:45)
[2021-01-02] MEDS ORDERED: OXYTOCIN DRIP 30 UNITS/500 ML BAG IV SCH (12:00)
[2021-01-02] MEDS: fentaNYL 100 MCG/2 ML INJ IV PRN ×2 (12:20→18:37)
[2021-01-02 12:37] LABS: Bilirubin,Urine NEG (Negative); Blood,Urine NEG (Negative); Color,Urine Straw (Yellow); Protein,Urine <15 mg/dL mg/dL (Negative); Urobilinogen,Urine < 2.0 mg/dL (<2.0); WBC,Urine < 1.0 /HPF (0.0-6.0)
[2021-01-02 12:43] LABS: Hematocrit 33.1 % (30.3-42.9); Hemoglobin 10.8 gm/dl (10.1-14.3); Mean Corpuscular HGB Conc 33 % (30-34); Mean Corpuscular Volume 81 fl (79-97); Platelet Count 243 K/mm3 (140-440); Red Blood Count 4.09 M/mm3 (3.65-5.03); Red Cell Distribution Width 16.1 % (13.2-15.2)
[2021-01-02] MEDS ORDERED: ONDANSETRON 4 MG/2 ML INJ IV PRN (13:37)
[2021-01-02] MEDS ORDERED: ONDANSETRON 4 MG/2 ML INJ ONE (13:40)
--- NOTE | 2021-01-02 17:18 | Event Note ---
Date: 01/02/21 E 2.5/90/-2.
[2021-01-02 19:06] VITALS: BP 109/61
--- NOTE | 2021-01-02 19:41 | Event Note ---
Date: 01/02/21 Contractions have spaced after IV hydration and rest. Cervix unchanged. Patient is not in active labor. BIB 14.6 cm. BPP /. Category 1 FHR tracing. Patient is not yet in active labor. Discharge home OK'd with Dr. Torres. Pt. to return when in active labor. Advised patient to perform daily movement counting. Signs of active labor and warning signs discussed with patient. Advised patient to follow up at [facility] tomorrow.
--- NOTE | 2021-01-02 19:49 | Discharge Summary ---
Providers - Providers Date of Admission: 01/02/21 11:39 Date of discharge: 01/02/21 Attending physician: DAKOTA VALERO MD Primary care physician: LIZA RIOS Hospitalization Reason for admission: other (Term ; false labor) Pertinent studies: Labs, Ultrasound Hospital course: Stable hospital course. Term undelivered. Condition at discharge: Good Disposition: DC-01 TO HOME OR SELFCARE - Discharge Diagnoses (1) Term Status: Acute (2) False labor Status: Acute Plan - Provider Discharge Summary Diet: routine Instructions: routine Additional instructions: Count movements daily. Return when in active labor. Follow up at [facility] tomorrow 01/03/21. - Follow up plan Follow up: LIZA RIOS MD [Primary Care Provider] - 01/03/21
== END 2021-01-02 20:03 | disposition home or self-care (01) | DRG 780 ==
LOC: TRG 07:36 → APU 07:38 → LD 11:39 → TRG 16:40
PROVIDERS: ADMIT Obstetrics & Gynecology; ATTEND Obstetrics & Gynecology
DX: O47.1 False labor at or after 37 completed weeks of gestation (principal); Z3A.39 39 weeks gestation of pregnancy; Z82.49 Family history of ischemic heart disease and other diseases of the circulatory system; O99.343 Other mental disorders complicating pregnancy, third trimester; F41.9 Anxiety disorder, unspecified; Z80.9 Family history of malignant neoplasm, unspecified
CPT/HCPCS: 36415; 76815; 76819; 81001; 85027; 86592; 86850; 86900; 86901; G0378; J2405; J3010; J7120

== ENCOUNTER 2021-08-02 13:53 | Emergency (ER) | payer OTHER ==
[2021-08-02 14:21] VITALS: BP 132/76
--- NOTE | 2021-08-02 14:59 | Emergency Department Report ---
ED ENT HPI - General Chief complaint: Dental/Oral Stated complaint: bottom lip swollen Time Seen by Provider: 08/02/21 14:43 Source: patient Mode of arrival: Ambulatory Limitations: No Limitations - History of Present Illness Initial comments: Patient is a 25-year-old female presents emergency room with complaints of lip swelling that began yesterday. She denies ever having this in the past. She denies anyone else with the same symptoms. She denies any oral intercourse. She denies any fever, nausea, vomiting, diarrhea, rash, difficulty swallowing. No past medical history. No allergies to medications. - Related Data Previous Rx's Medication Instructions Recorded Last Taken Type traMADoL [Ultram] 50 mg PO Q6HR PRN #12 tablet 12/15/16 Unknown Rx Meclizine [Antivert] 25 mg PO TID PRN #30 tablet 04/10/17 Unknown Rx Ciprofloxacin HCl [Ciprofloxacin 500 mg PO Q12HR #28 tab 03/06/20 Unknown Rx TAB] Hyoscyamine Subl [Levsin Sl 0.125 0.125 mg SL Q6HR PRN #20 tab 03/06/20 Unknown Rx TAB] Ondansetron [Zofran ODT TAB] 8 mg PO Q12HR #14 tab.rapdis 03/06/20 Unknown Rx metroNIDAZOLE [Flagyl] 500 mg PO Q12HR #28 tab 03/06/20 Unknown Rx Acetaminophen/Codeine [Tylenol 1 tab PO Q8H PRN #12 tab 07/08/20 Unknown Rx /Codeine # 3 tab] Penicillin V Potassium 500 mg PO QID 7 Days #28 tablet 07/08/20 Unknown Rx Acetaminophen [Tylenol] 500 mg PO Q6HR PRN #30 tablet 08/04/20 Unknown Rx Famotidine [Pepcid] 20 mg PO Q12H #40 tablet 08/04/20 Unknown Rx Metoclopramide [Reglan] 10 mg PO Q6H PRN #40 tab 08/04/20 Unknown Rx Acyclovir 400 mg PO TID 7 Days #21 tablet 08/02/21 Unknown Rx Allergies Allergy/AdvReac Type Severity Reaction Status Date / Time No Known Allergies Allergy Verified 04/09/17 16:11 ED Dental HPI - General Chief complaint: Dental/Oral Stated complaint: bottom lip swollen Time Seen by Provider: 08/02/21 14:43 Source: patient Mode of arrival: Ambulatory Limitations: No Limitations - Related Data Previous Rx's Medication Instructions Recorded Last Taken Type traMADoL [Ultram] 50 mg PO Q6HR PRN #12 tablet 12/15/16 Unknown Rx Meclizine [Antivert] 25 mg PO TID PRN #30 tablet 04/10/17 Unknown Rx Ciprofloxacin HCl [Ciprofloxacin 500 mg PO Q12HR #28 tab 03/06/20 Unknown Rx TAB] Hyoscyamine Subl [Levsin Sl 0.125 0.125 mg SL Q6HR PRN #20 tab 03/06/20 Unknown Rx TAB] Ondansetron [Zofran ODT TAB] 8 mg PO Q12HR #14 tab.rapdis 03/06/20 Unknown Rx metroNIDAZOLE [Flagyl] 500 mg PO Q12HR #28 tab 03/06/20 Unknown Rx Acetaminophen/Codeine [Tylenol 1 tab PO Q8H PRN #12 tab 07/08/20 Unknown Rx /Codeine # 3 tab] Penicillin V Potassium 500 mg PO QID 7 Days #28 tablet 07/08/20 Unknown Rx Acetaminophen [Tylenol] 500 mg PO Q6HR PRN #30 tablet 08/04/20 Unknown Rx Famotidine [Pepcid] 20 mg PO Q12H #40 tablet 08/04/20 Unknown Rx Metoclopramide [Reglan] 10 mg PO Q6H PRN #40 tab 08/04/20 Unknown Rx Acyclovir 400 mg PO TID 7 Days #21 tablet 08/02/21 Unknown Rx Allergies Allergy/AdvReac Type Severity Reaction Status Date / Time No Known Allergies Allergy Verified 04/09/17 16:11 ED Review of Systems ROS: Stated complaint: bottom lip swollen Other details as noted in HPI Comment: All other systems reviewed and negative ED Past Medical Hx - Past Medical History Previous Medical History?: Yes Hx Hypertension: No Hx Congestive Heart Failure: No Hx Diabetes: No Hx Deep Vein Thrombosis: No Hx Renal Disease: No Hx Sickle Cell Disease: No Hx Seizures: No Hx Psychiatric Treatment: Yes (anxiety) Hx Asthma: No Hx COPD: No Hx HIV: No - Surgical History Additional Surgical History: oral surgery - Social History Smoking Status: Never Smoker - Medications Home Medications: Home Medications Medication Instructions Recorded Confirmed Last Taken Type traMADoL [Ultram] 50 mg PO Q6HR PRN #12 tablet 12/15/16 12/16/20 Unknown Rx Meclizine [Antivert] 25 mg PO TID PRN #30 tablet 04/10/17 12/16/20 Unknown Rx Ciprofloxacin HCl [Ciprofloxacin 500 mg PO Q12HR #28 tab 03/06/20 12/16/20 Unknown Rx TAB] Hyoscyamine Subl [Levsin Sl 0.125 0.125 mg SL Q6HR PRN #20 tab 03/06/20 12/16/20 Unknown Rx TAB] Ondansetron [Zofran ODT TAB] 8 mg PO Q12HR #14 tab.rapdis 03/06/20 12/16/20 Unknown Rx metroNIDAZOLE [Flagyl] 500 mg PO Q12HR #28 tab 03/06/20 12/16/20 Unknown Rx Acetaminophen/Codeine [Tylenol 1 tab PO Q8H PRN #12 tab 07/08/20 12/16/20 Unknown Rx /Codeine # 3 tab] Penicillin V Potassium 500 mg PO QID 7 Days #28 tablet 07/08/20 12/16/20 Unknown Rx Acetaminophen [Tylenol] 500 mg PO Q6HR PRN #30 tablet 08/04/20 12/16/20 Unknown Rx Famotidine [Pepcid] 20 mg PO Q12H #40 tablet 08/04/20 12/16/20 Unknown Rx Metoclopramide [Reglan] 10 mg PO Q6H PRN #40 tab 08/04/20 12/16/20 Unknown Rx Acyclovir 400 mg PO TID 7 Days #21 tablet 08/02/21 Unknown Rx ED Physical Exam - General Limitations: No Limitations General appearance: alert, in no apparent distress - Head Head exam: Present: atraumatic, normocephalic - Eye Eye exam: Present: normal appearance - ENT ENT exam: Present: mucous membranes moist, other (small grouped vesicles to the left lower lip, mild lip edema) - Neurological Exam Neurological exam: Present: alert, oriented X3 - Psychiatric Psychiatric exam: Present: normal affect, normal mood - Skin Skin exam: Present: warm, dry, intact ED Course Vital Signs 08/02/21 14:20 Temperature 98 F Pulse Rate 97 H Respiratory 16 Rate Blood Pressure 132/76 [Right] O2 Sat by Pulse 98 Oximetry ED Medical Decision Making - Medical Decision Making Patient is a 25-year-old female presents emergency room with complaints of lip swelling that began yesterday. She denies ever having this in the past. She denies anyone else with the same symptoms. She denies any oral intercourse. She denies any fever, nausea, vomiting, diarrhea, rash, difficulty swallowing. No past medical history. No allergies to medications. Vitals are stable. On exam:small grouped vesicles to the left lower lip, mild lip edema. Examination appears consistent with oral HSV. Patient given prescription for medication. Advised patient Please take medication as prescribed. May also use lysine ointment [id number]. This is contagious please do not kiss anyone or perform oral intercourse. Return to emergency room for any new or worsening symptoms. Critical care attestation.: If time is entered above; I have spent that time in minutes in the direct care of this critically ill patient, excluding procedure time. ED Disposition Clinical Impression: Oral herpes simplex infection Disposition: HOME / SELF CARE / HOMELESS Is pt being admited?: No Does the pt Need Aspirin: No Condition: Stable Instructions: Cold Sore Additional Instructions: Please take medication as prescribed. May also use lysine ointment [id number]. This is contagious please do not kiss anyone or perform oral intercourse. Return to emergency room for any new or worsening symptoms. Prescriptions: Acyclovir 400 mg PO TID 7 Days #21 tablet Referrals: EVERARDO CARLOS MD [Staff Physician] - 3-5 Days [facility] [Provider Group] - 3-5 Days Time of Disposition: 14:57 Print Language: POLISH
== END 2021-08-02 15:36 | disposition home or self-care (01) ==
LOC: ED 13:53
DX: B00.2 Herpesviral gingivostomatitis and pharyngotonsillitis (principal); Z98.890 Other specified postprocedural states
CPT/HCPCS: 99282

== ENCOUNTER 2022-01-27 08:41 | Emergency (ER) | payer OTHER ==
[2022-01-27] MEDS ORDERED: SODIUM CHLORIDE 0.9% 1000 ML 1,000 ML IV ONE (09:20)
--- NOTE | 2022-01-27 09:21 | Emergency Department Report ---
ED General Adult HPI - General Chief complaint: Arrhythmia/Palpitations Stated complaint: SVT Time Seen by Provider: 01/27/22 08:54 Source: patient, EMS (Verbal report received from emergency medical services. EMS documentation not available at time of chart dictation ), RN notes reviewed, old records reviewed Mode of arrival: Stretcher Limitations: No Limitations - History of Present Illness Initial comments: The patient was evaluated in the emergency department for symptoms described in the history of present illness. He/she was evaluated in the context of the global COVID-19 pandemic, which necessitated consideration that the patient might be at risk for infection with the virus that causes COVID-19. Institutional protocols and algorithms that pertain to the evaluation of patients at risk for COVID-19 are in a state of rapid change based on information released by regulatory bodies including the CDC and federal and state organizations. These policies and algorithms were followed during the patient's care in the emergency department. Please note that these policies, procedures and recommendations changed on a rapid basis. The patient is a 26-year-old female who presents to the emergency room today with a complaint of resolved SVT. The patient has a history of paroxysmal SVT. The patient states that she is not , and has not delivered her given in the past 6 weeks, and she denies control tablets, possibility of , and oral contraceptive use. Patient history is obtained from patient and from EMS. As per patient and EMS, patient reported painless heart racing while at work this morning. 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 She had a prehospital EKG which demonstrated a narrow complex regular tachycardia. This resolved with vagal maneuvers. The patient denies physical pain at this time. The patient does report that she still feels a little bit weak, and lightheaded. The patient occasionally consumes caffeine. The patient occasionally consumes marijuana, tobacco and smoke products. The patient denies recreational drug use otherwise, and drugs such as cocaine, meth. She denies additional injuries and complaints, and reports that she feels like she is back to her baseline. -: This morning Severity scale (0 -10): 0 Consistency: now resolved Improves with: other (Vagal maneuvers) - Related Data Previous Rx's Medication Instructions Recorded Last Taken Type traMADoL [Ultram] 50 mg PO Q6HR PRN #12 tablet 12/15/16 Unknown Rx Meclizine [Antivert] 25 mg PO TID PRN #30 tablet 04/10/17 Unknown Rx Ciprofloxacin HCl [Ciprofloxacin 500 mg PO Q12HR #28 tab 03/06/20 Unknown Rx TAB] Hyoscyamine Subl [Levsin Sl 0.125 0.125 mg SL Q6HR PRN #20 tab 03/06/20 Unknown Rx TAB] Ondansetron [Zofran ODT TAB] 8 mg PO Q12HR #14 tab.rapdis 03/06/20 Unknown Rx metroNIDAZOLE [Flagyl] 500 mg PO Q12HR #28 tab 03/06/20 Unknown Rx Acetaminophen/Codeine [Tylenol 1 tab PO Q8H PRN #12 tab 07/08/20 Unknown Rx /Codeine # 3 tab] Penicillin V Potassium 500 mg PO QID 7 Days #28 tablet 07/08/20 Unknown Rx Acetaminophen [Tylenol] 500 mg PO Q6HR PRN #30 tablet 08/04/20 Unknown Rx Famotidine [Pepcid] 20 mg PO Q12H #40 tablet 08/04/20 Unknown Rx Metoclopramide [Reglan] 10 mg PO Q6H PRN #40 tab 08/04/20 Unknown Rx Acyclovir 400 mg PO TID 7 Days #21 tablet 08/02/21 Unknown Rx Allergies Allergy/AdvReac Type Severity Reaction Status Date / Time No Known Allergies Allergy Verified 04/09/17 16:11 ED Review of Systems ROS: Stated complaint: SVT Other details as noted in HPI Constitutional: denies: fever Eyes: denies: eye discharge ENT: denies: epistaxis Respiratory: denies: cough Cardiovascular: palpitations Gastrointestinal: denies: abdominal pain Genitourinary: denies: dysuria Musculoskeletal: denies: back pain Neurological: weakness Psychiatric: anxiety ED Past Medical Hx - Past Medical History Hx Hypertension: No Hx Congestive Heart Failure: No Hx Diabetes: No Hx Deep Vein Thrombosis: No Hx Renal Disease: No Hx Sickle Cell Disease: No Hx Seizures: No Hx Psychiatric Treatment: Yes (anxiety) Hx Asthma: No Hx COPD: No Hx HIV: No - Surgical History Additional Surgical History: oral surgery - Social History Smoking Status: Never Smoker - Medications Home Medications: Home Medications Medication Instructions Recorded Confirmed Last Taken Type traMADoL [Ultram] 50 mg PO Q6HR PRN #12 tablet 12/15/16 12/16/20 Unknown Rx Meclizine [Antivert] 25 mg PO TID PRN #30 tablet 04/10/17 12/16/20 Unknown Rx Ciprofloxacin HCl [Ciprofloxacin 500 mg PO Q12HR #28 tab 03/06/20 12/16/20 Unknown Rx TAB] Hyoscyamine Subl [Levsin Sl 0.125 0.125 mg SL Q6HR PRN #20 tab 03/06/20 12/16/20 Unknown Rx TAB] Ondansetron [Zofran ODT TAB] 8 mg PO Q12HR #14 tab.rapdis 03/06/20 12/16/20 Unknown Rx metroNIDAZOLE [Flagyl] 500 mg PO Q12HR #28 tab 03/06/20 12/16/20 Unknown Rx Acetaminophen/Codeine [Tylenol 1 tab PO Q8H PRN #12 tab 07/08/20 12/16/20 Unknown Rx /Codeine # 3 tab] Penicillin V Potassium 500 mg PO QID 7 Days #28 tablet 07/08/20 12/16/20 Unknown Rx Acetaminophen [Tylenol] 500 mg PO Q6HR PRN #30 tablet 08/04/20 12/16/20 Unknown Rx Famotidine [Pepcid] 20 mg PO Q12H #40 tablet 08/04/20 12/16/20 Unknown Rx Metoclopramide [Reglan] 10 mg PO Q6H PRN #40 tab 08/04/20 12/16/20 Unknown Rx Acyclovir 400 mg PO TID 7 Days #21 tablet 08/02/21 Unknown Rx ED Physical Exam - General Limitations: No Limitations General appearance: alert, in no apparent distress - Head Head exam: Present: atraumatic, normocephalic - Eye Eye exam: Present: normal appearance, EOMI. Absent: nystagmus - ENT ENT exam: Present: normal exam, normal orophraynx, mucous membranes moist, normal external ear exam - Neck Neck exam: Present: normal inspection, full ROM. Absent: tenderness, meningismus - Respiratory Respiratory exam: Present: normal lung sounds bilaterally. Absent: respiratory distress, wheezes, rales, rhonchi, stridor, decreased breath sounds - Cardiovascular Cardiovascular Exam: Present: regular rate, normal rhythm, normal heart sounds. Absent: bradycardia, tachycardia, irregular rhythm, systolic murmur, diastolic murmur, rubs, gallop - GI/Abdominal GI/Abdominal exam: Present: soft. Absent: distended, tenderness, guarding, r ebound, rigid, pulsatile mass - Extremities Exam Extremities exam: Present: normal inspection, full ROM, other (2+ pulses noted in the bilateral upper and lower extremities. There is no palpable cord. negative Homans sign. Muscular compartments are soft. The pelvis is stable.). Absent: pedal edema, calf tenderness - Back Exam Back exam: Present: normal inspection. Absent: tenderness, CVA tenderness (R), CVA tenderness (L), paraspinal tenderness, vertebral tenderness - Neurological Exam Neurological exam: Present: alert, oriented X3, other (No facial droop. Tongue midline. Extraocular movements intact bilaterally. Facial sensation intact to light touch in V1, V2, V3 distribution bilaterally. 5 and a 5 strength in 4 extremities. Sensation intact to light touch in 4 extremities.). Absent: motor sensory deficit - Psychiatric Psychiatric exam: Present: anxious - Skin Skin exam: Present: warm, dry, intact, normal color. Absent: rash ED Course Vital Signs 01/27/22 01/27/22 08:46 09:31 Temperature 98.4 F Pulse Rate 81 Respiratory 14 Rate Blood Pressure 123/82 [Left] O2 Sat by Pulse 97 Oximetry O2 Sat by Pulse 99 Oximetry [ Digit-Finger] - Reevaluation(s) Reevaluation #1: 01/27/22 09:29 Differential diagnosis, including but not limited to: SVT, electrolyte derangement, thyroid derangement Assessment and plan: 26-year-old female with resolved SVT. She is not currently tachycardic, tachypneic or hypoxic, she denies DVT and pulmonary embolism risk factors and she is low risk by Wells criteria for pulmonary embolism. Her EKG now appears to be unchanged from prior EKG, and her physical examination appears to be benign and noncontributory. Counseled to avoid consumption of alcohol, tobacco, smoke products and caffeine. Laboratory studies pending. Currently resting comfortably in stretcher, and in no acute distress. SVT resolved with vagal maneuvers 01/27/22 10:26 Laboratory studies are essentially unremarkable. Heart rate 90 bpm. Resting comfortably on the right-hand side, and in no acute distress. Discussed laboratory findings with patient. She articulated understanding. Discussed vagal maneuvers with patient, and self treatment maneuvers. She articulates understanding. All questions answered. Return precautions are reviewed. - Pulse Oximetry Interpretation Digit-Finger Initial Pulse Oximetry Readin O2 Sat by Pulse Oximetry: 99 Actions Taken: none ED Medical Decision Making - Lab Data Result diagrams: 01/27/22 09:08 01/27/22 09:08 Vital Signs 01/27/22 08:46 Temperature 98.4 F Pulse Rate 81 Respiratory 14 Rate Blood Pressure 123/82 [Left] O2 Sat by Pulse 97 Oximetry Lab Results 01/27/22 01/27/22 01/27/22 Range/Units 09:08 09:08 09:08 Hgb 15.7 H (10.1-14.3) gm/dl Hct 47.3 H (30.3-42.9) % PT 13.1 (12.2-14.9) Sec. INR 0.90 (0.87-1.13) Sodium 140 (137-145) mmol/L Potassium 4.5 (3.6-5.0) mmol/L Chloride 109.1 H (98-107) mmol/L Carbon Dioxide 20 L (22-30) mmol/L Anion Gap 15 mmol/L BUN 19 H (7-17) mg/dL Creatinine 1.0 (0.6-1.2) mg/dL Estimated GFR > 60 ml/min BUN/Creatinine Ratio 19 % Glucose 85 (65-100) mg/dL Calcium 9.3 (8.4-10.2) mg/dL Magnesium 1.90 (1.7-2.3) mg/dL TSH (0.270-4.200) mlU/mL HCG, Quant (0-4) mIU/mL 01/27/22 01/27/22 Range/Units 09:08 09:08 Hgb (10.1-14.3) gm/dl Hct (30.3-42.9) % PT (12.2-14.9) Sec. INR (0.87-1.13) Sodium (137-145) mmol/L Potassium (3.6-5.0) mmol/L Chloride (98-107) mmol/L Carbon Dioxide (22-30) mmol/L Anion Gap mmol/L BUN (7-17) mg/dL Creatinine (0.6-1.2) mg/dL Estimated GFR ml/min BUN/Creatinine Ratio % Glucose (65-100) mg/dL Calcium (8.4-10.2) mg/dL Magnesium (1.7-2.3) mg/dL TSH 1.520 (0.270-4.200) mlU/mL HCG, Quant < 2 (0-4) mIU/mL - EKG Data -: EKG Interpreted by Ca EKG shows normal: sinus rhythm - EKG Data When compared to previous EKG there are: no significant change 01/27/22 09:27 Emergency room EKG is interpreted at 0900 a.m. This is a sinus rhythm, with a rate of 88 bpm. There is a rightward axis deviation. There is normal P wave axis. The intervals are otherwise unremarkable and within normal limits, questionable juvenile T wave inversion. This EKG is not a STEMI. When compared to prior EKG from 2017, appears to be unchanged, with the exception of possible juvenile T wave inversion in V2. Prehospital EKGs reviewed and appreciated. Demonstrates SVT, with a rate of 209 bpm. Rightward axis deviation. QTc 302 ms. Abnormal EKG. Not a STEMI. SVT is resolved at this time. Critical care attestation.: If time is entered above; I have spent that time in minutes in the direct care of this critically ill patient, excluding procedure time. ED Disposition Clinical Impression: SVT (supraventricular tachycardia) Disposition: 01 HOME / SELF CARE / HOMELESS Is pt being admited?: No Does the pt Need Aspirin: No Condition: Stable Instructions: Supraventricular Tachycardia, Adult Additional Instructions: Please avoid consumption of alcohol, tobacco, smoke products, marijuana, and caffeinated beverages and substances. Please practice vagal maneuvers and self calming techniques if SVT/rapid heart rate reoccurs. May participate in physical activities as tolerated. Follow-up with a primary care doctor or director index in the next 3 to 5 days. Please return to the emergency room right away with new pain, worsened pain, migration of pain, projectile vomiting, change in mental status, confusion, inability tolerate liquid feeds, new, worsened or different symptoms not present on the initial emergency room evaluation Referrals: [facility] [Provider Group] - 3-5 Days [facility] [Provider Group] - 3-5 Days Forms: Work/School Release Form(ED)
[2022-01-27 09:25] LABS: Hematocrit 47.3 % (30.3-42.9); Hemoglobin 15.7 gm/dl (10.1-14.3)
[2022-01-27 09:40] LABS: INR 0.9 (0.87-1.13)
[2022-01-27 09:43] LABS: BUN/Creatinine Ratio 19; Blood Urea Nitrogen 19 mg/dL (7-17); Calcium 9.3 mg/dL (8.4-10.2); Hemolysis Index 13
[2022-01-27 10:48] VITALS: BP 110/71
--- NOTE | 2022-01-27 11:19 | Electrocardiograph Report ---
[facility] Test Date: 2022-01-27 Test Time: 08:57:33 Pat Name: JOY SIMONS Department: Room: Gender: F [employer]: NOHEMI : 1995 Requested By: JASON MAYORGA Order Number: [id number] Reading MD: Oswaldo Gibbons Measurements Intervals [place] Rate: 88 P: 71 NE: 160 QRS: 112 QRSD: 79 T: 65 QT: 362 QTc: 439 Interpretive Statements Sinus rhythm Probable left atrial enlargement Right axis deviation Abnormal Q suggests anterior infarct No previous ECG available for comparison Electronically Signed On 01-27-2022 11:18:32 EDT by Oswaldo Gibbons
== END 2022-01-27 11:04 | disposition home or self-care (01) ==
LOC: ED 08:41
DX: I47.1 Supraventricular tachycardia (principal); F41.9 Anxiety disorder, unspecified; Z79.899 Other long term (current) drug therapy
CPT/HCPCS: 36415; 80048; 83735; 84443; 84702; 85014; 85018; 85610; 93005; 96360; 99284; J7030

== ENCOUNTER 2022-05-02 10:18 | Emergency (ER) | payer OTHER | END 2022-05-02 10:25 | disposition left against medical advice (07) | LOC: ED 10:18 | DX: R50.9 Fever, unspecified (principal); Z53.21 Procedure and treatment not carried out due to patient leaving prior to being seen by health care provider ==